=== PATIENT | female | born 1965 | race Caucasian/White ===

== ENCOUNTER 2023-01-27 07:43 | Day surgery (SDC) | payer OTHER ==
[~2023-01-27] VITALS: Ht 152.4 cm; Wt 62.1 kg
[2023-01-27] MEDS ORDERED: MIDAZOLAM 5 MG/5 ML VIAL ONE (08:19)
[2023-01-27] MEDS ORDERED: diphenhydrAMINE 50 MG/ML VIAL ONE (08:19)
[2023-01-27] MEDS ORDERED: fentaNYL citrate 0.05 MG/ML VIAL ONE (08:19)
[2023-01-27] MEDS ORDERED: LIDOCAINE 2% 100 MG/5 ML UJET TP ONE ×2 (08:19→08:50)
[2023-01-27] MEDS ORDERED: MIDAZOLAM 2 MG/2 ML VIAL IVP ONE (08:50)
[2023-01-27] MEDS ORDERED: fentaNYL citrate 0.05 MG/ML VIAL IVP ONE (08:51)
[2023-01-27] MEDS ORDERED: diphenhydrAMINE 50 MG/ML VIAL IVP ONE (08:52)
== END 2023-01-27 09:42 | disposition home or self-care (01) ==
LOC: MDS 07:43 → MMU 07:45 → MDS 09:42
PROVIDERS: ATTEND Internal Medicine Gastroenterology
DX: Z12.11 Encounter for screening for malignant neoplasm of colon (principal); K63.5 Polyp of colon; Z90.49 Acquired absence of other specified parts of digestive tract; Z98.890 Other specified postprocedural states
CPT/HCPCS: 45385; J2250; J3010; J1200